=== PATIENT | male | born 1955 | race Caucasian/White ===

== ENCOUNTER 2022-07-10 20:03 | Emergency (ER) | payer SELFPAY ==
[~2022-07-10] VITALS: Ht 175.3 cm; Wt 113.0 kg
[2022-07-10 20:09] VITALS: BP 116/79
[2022-07-10] MEDS ORDERED: CLIN-116 MT (22:37)
[2022-07-10] MEDS ORDERED: CLINDAMYCIN HCL 150MG CAPSULE PO SCH (22:45)
== END 2022-07-10 22:50 | disposition home or self-care (01) ==
LOC: ER 20:03
DX: S90.822A Blister (nonthermal), left foot, initial encounter (principal); T69.022A Immersion foot, left foot, initial encounter; I10 Essential (primary) hypertension; Z87.828 Personal history of other (healed) physical injury and trauma; X58.XXXA Exposure to other specified factors, initial encounter; Y93.89 Activity, other specified; Y92.488 Other paved roadways as the place of occurrence of the external cause
CPT/HCPCS: 99283

== ENCOUNTER 2022-07-11 14:27 | Emergency (ER) | payer MEDICARE ==
[~2022-07-11 14:27] MED LIST: CLIN-116 MT
[2022-07-12] MEDS ORDERED: AMLO5TAB4 PO (11:37)
[2022-07-12] MEDS ORDERED: AMLO2.5T2 PO (22:36)
[2022-07-12] MEDS ORDERED: ACET-2708 PO (22:36)
== END 2022-07-11 15:50 | disposition left against medical advice (07) ==
LOC: ER 14:27
DX: Z53.21 Procedure and treatment not carried out due to patient leaving prior to being seen by health care provider (principal)

== ENCOUNTER 2022-07-12 11:23 | Emergency (ER) | payer MEDICARE ==
[~2022-07-12] VITALS: Ht 172.7 cm; Wt 100.0 kg
[2022-07-12] MEDS ORDERED: AMLO5TAB4 PO (11:37)
[2022-07-12] MEDS ORDERED: KETOROLAC 60MG/2ML VIAL IM ONE (12:00)
[2022-07-12] MEDS ORDERED: ACETAMINOPHEN 325MG TABLET PO ONE (12:15)
[2022-07-12] MEDS ORDERED: HYDROCODONE/ACETAMINOPHEN 5/325MG TABLET PO ONE (14:30)
[2022-07-12] MEDS ORDERED: ONDANSETRON 4MG ODT PO ONE (14:30)
[2022-07-12 15:21] VITALS: BP 118/77
[2022-07-12] MEDS ORDERED: AMLO2.5T2 PO (22:36)
[2022-07-12] MEDS ORDERED: ACET-2708 PO (22:36)
[2022-07-13] MEDS ORDERED: ACET-2708 MT (10:37)
== END 2022-07-12 15:33 | disposition home or self-care (01) ==
LOC: ER 11:23
DX: S92.592A Other fracture of left lesser toe(s), initial encounter for closed fracture (principal); X58.XXXA Exposure to other specified factors, initial encounter; Y93.9 Activity, unspecified; Y92.9 Unspecified place or not applicable; I10 Essential (primary) hypertension
CPT/HCPCS: 73630; 96372; 99284; J1885; Q0162

== ENCOUNTER 2022-07-12 19:16 | Emergency (ER) | payer MEDICARE ==
[~2022-07-12] VITALS: Ht 172.7 cm; Wt 101.6 kg
[~2022-07-12 19:16] MED LIST changes: +AMLO5TAB4 PO
[2022-07-12 22:00] VITALS: BP 154/75
[2022-07-12] MEDS ORDERED: ACETAMINOPHEN 325MG TABLET PO NR (22:33)
[2022-07-12] MEDS ORDERED: AMLO2.5T2 PO (22:36)
[2022-07-12] MEDS ORDERED: ACET-2708 PO (22:36)
[2022-07-13] MEDS ORDERED: ACET-2708 MT (10:37)
== END 2022-07-12 22:51 | disposition home or self-care (01) ==
LOC: ER 19:16
DX: I10 Essential (primary) hypertension (principal); M79.675 Pain in left toe(s); M86.9 Osteomyelitis, unspecified; N28.9 Disorder of kidney and ureter, unspecified
CPT/HCPCS: 99283

== ENCOUNTER 2022-07-13 09:01 | Emergency (ER) | payer MEDICARE ==
[~2022-07-13] VITALS: Ht 175.3 cm; Wt 79.0 kg
[~2022-07-13 09:01] MED LIST changes: +ACET-2708 PO; +AMLO2.5T2 PO
[2022-07-13] MEDS ORDERED: ACETAMINOPHEN 325MG TABLET PO ONE (09:30)
[2022-07-13] MEDS ORDERED: ACET-2708 MT (10:37)
[2022-07-13 11:06] VITALS: BP 143/75
[2022-07-14] MEDS ORDERED: IBUP-2028 MT (10:19)
== END 2022-07-13 11:10 | disposition home or self-care (01) ==
LOC: ER 09:01
DX: M79.672 Pain in left foot (principal); I73.9 Peripheral vascular disease, unspecified; F17.210 Nicotine dependence, cigarettes, uncomplicated; Z88.0 Allergy status to penicillin; Z90.5 Acquired absence of kidney
CPT/HCPCS: 99282

== ENCOUNTER 2022-07-14 06:47 | Emergency (ER) | payer MEDICARE ==
[~2022-07-14] VITALS: Ht 175.3 cm; Wt 101.0 kg
[~2022-07-14 06:47] MED LIST changes: +ACET-2708 MT
[2022-07-14] MEDS ORDERED: IBUPROFEN 400MG TABLET PO ONE (08:00)
[2022-07-14] MEDS ORDERED: IBUP-2028 MT (10:19)
[2022-07-14 10:42] VITALS: BP 134/81
== END 2022-07-14 10:45 | disposition home or self-care (01) ==
LOC: ER 06:47
DX: M79.672 Pain in left foot (principal); I10 Essential (primary) hypertension; Z98.890 Other specified postprocedural states
CPT/HCPCS: 71101; 99283

== ENCOUNTER 2023-04-10 21:08 | Emergency (ER) | payer MEDICARE ==
[~2023-04-10] VITALS: Ht 167.6 cm; Wt 100.0 kg
[~2023-04-10 21:08] MED LIST changes: +IBUP-2028 MT
[2023-04-10 21:11] VITALS: BP 145/82; O2SAT 99
[2023-04-10] MEDS ORDERED: ACETAMINOPHEN 325MG TABLET PO ONE (21:45)
[2023-04-11 00:05] VITALS: PULSE 85; RESP 16; TEMP 98.6
== END 2023-04-11 00:06 | disposition home or self-care (01) ==
LOC: ER 21:08
DX: S20.212A Contusion of left front wall of thorax, initial encounter (principal); I10 Essential (primary) hypertension; W18.30XA Fall on same level, unspecified, initial encounter; Y93.89 Activity, other specified; Y92.89 Other specified places as the place of occurrence of the external cause; Y99.8 Other external cause status
CPT/HCPCS: 71101; 73590; 99284